=== PATIENT | female | born 1970 | race Two or more races ===

== ENCOUNTER 2016-04-24 18:27 | Emergency (ER) | payer OTHER ==
[2016-04-24 19:24] LABS: SPECIFIC GRAVITY 1.015 (1.001-1.030); URINE BILIRUBIN NEGATIVE (NEGATIVE); URINE BLOOD 4+ (NEGATIVE); URINE GLUCOSE (UA) NEGATIVE (NEGATIVE); URINE LEUKOCYTE ESTERASE 2+ (NEGATIVE); URINE NITRITE NEGATIVE (NEGATIVE); URINE PROTEIN 1+ (NEGATIVE); URINE UROBILINOGEN NORMAL (0-1 mg/dl)
[2016-04-24 19:26] LABS: URINE APPEARANCE SL CLOUDY; URINE COLOR YELLOW
[2016-04-24 19:34] LABS: HCG,QUALITATIVE URINE NEGATIVE
[2016-04-24 20:25] LABS: URINE BACTERIA 1+; URINE EPITHELIAL CELLS 0 /hpf; URINE RBC >50 /hpf; URINE WBC 25-30 /hpf
[2016-04-24] MEDS ORDERED: ACETAMINOPHEN 325 MG TABLET ONE (21:15)
[2016-04-24] MEDS ORDERED: PHENAZOPYRIDINE HCL 200 MG TABLET ONE (21:15)
[2016-04-24] MEDS ORDERED: IBUPROFEN 600 MG TABLET ONE (21:15)
[2016-04-24] MEDS ORDERED: CEPHALEXIN 500 MG CAPSULE ONE (21:15)
== END 2016-04-24 21:35 | disposition home or self-care (01) ==
LOC: ED 18:27
DX: N39.0 Urinary tract infection, site not specified (principal)
CPT/HCPCS: 81025; 87086; 81001; 99283 ×2; A9270 ×4